=== PATIENT | male | born 1980 | race Caucasian/White ===

== ENCOUNTER 2017-05-02 12:37 | Emergency (ER) | payer OTHER ==
[2015-04-01 19:34] VITALS: BP 117/62
--- NOTE | 2017-05-02 13:14 | ED Physician Documentation ---
General Adult - HISTORIAN Historian: patient - HPI Stated Complaint: baseball to face Chief Complaint: General Adult Further Comments: yes (36 year old male patient presents with facial and nose pain after being hit in the nose and upper lip with a baseball in the batting cage. Denies difficulty breathing through nares.) - ROS CONST: no problems EYES/ENT: none CVS/RESP: none GI/: none MS/SKIN/LYMPH: none NEURO/PSYCH: denies: headache - PAST HX Past History: A-Fib (remote history at age 23) Other History: none Allergies/Adverse Reactions: Allergies Allergy/AdvReac Type Severity Reaction Status Date / Time No Known Allergies Allergy Verified 05/02/17 12:53 Home Medications: Ambulatory Orders Medication Instructions Recorded NK [NK] 04/01/15 - SOCIAL HX Smoking History: denies: non-smoker - FAMILY HX Family History: No - VITAL SIGNS Vital Signs: Vital Signs Temp Pulse Resp BP Pulse Ox 117/62 04/01/15 19:32 - REVIEWED ASSESSMENTS Nursing Assessment Reviewed: Yes Vitals Reviewed: Yes Progress - Progress Progress: Referral to Dr Callejas - ENT Patient refused pain medication in ER. Reviewed discharge instructions with patient, verbalized understanding. Home with disc and report. ED Results Lab/Radiology - Radiology Radiology Impressions: CT of the facial bones Clinical history: Baseball injury Radiation dose DLP 519 Axial images of the facial bones were performed followed by sagittal and coronal reformatted images, study demonstrates the following: There is what appear to be a fracture of the anterio nasal spine mid maxilla. Orbits are normal. No fluid in the sinuses . Zygomatic arch, mandibles are normal. Temporomandibular joints are normal. No orbital emphysema. Impression: Nondisplaced fracture of the anterior nasal spine Otherwise normal CT of the facial bones - Orders Orders: ED Orders Category Date Time Status CT MAXILLOFACIAL W/O DYE Stat Exams 05/02/17 Ordered General Adult Physical Exam - PHYSICAL EXAM GENERAL APPEARANCE: mild distress EENT: eye inspection normal, pharynx normal, no signs of dehydration, FAISAL, no nystagmus, TM's nml, other (nasal edema noted, upper lip edema; no loose teeth; able to breath through bilateral nares. ) RESPIRATORY: no resp distress, chest non-tender, breath sounds normal CVS: reg rate & rhythm, heart sounds normal, equal pulses, no murmur, no gallop , PMI nml, no JVD, no friction rub, 24 ABDOMEN: soft, no organomegaly, normal bowel sounds, no abdominal bruit, no distension SKIN: normal color, warm/dry, NR, INT, PAL, DR EXTREMITIES: non-tender, normal range of motion, no evidence of injury, no edema , J, [employer] NEURO: oriented X3, CN's nml as tested, motor nml, sensation nml, mood/affect nml Discharge Clincal Impression: Nasal bone fracture Qualifiers: Encounter type: initial encounter Fracture type: closed Qualified Code(s): S02.2XXA - Fracture of nasal bones, initial encounter for closed fracture Referrals: Yousif Fish MD [Primary Care Provider] - 2 Days Additional Instructions: Rest ice Elevation of head Follow up with ENT (ear,nose and throat) this week. Take your disc and report to the ENT doctor with you. Home Medications: Ambulatory Orders NK [NK] 04/01/15 Condition: Stable Disposition: 01 HOME, SELF-CARE Decision to Admit: NO Decision Time: 13:14
--- NOTE | 2017-05-02 14:15 | Diagnostic Imaging Report ---
BHAVESH MACDONALD (ANGUS) - ER~ [facility] [address] [facility] [address] [place], [place]. [address] ~ ~ ~ ~ Report Submission Date: May 02, 2017 1:09:45 PM CDT Patient ~ Study Name: GOMEZ ROJO ~ Date: May 02, 2017 12:48:00 PM CDT ~ Modality Type: CT\SR Gender: M ~ Description: CT MAXILLOFACIAL W/O D : 78 ~ Institution: [facility] Physician: BHAVESH MACDONALD) - MATT ~ ~ ~ ~ CT of the facial bones Clinical history: Baseball injury Radiation dose DLP 519 Axial images of the facial bones were performed followed by sagittal and coronal reformatted images, study demonstrates the following: There is what appear to be a fracture of the anterio ~nasal spine mid maxilla. Orbits are normal. No fluid in the sinuses . Zygomatic arch, mandibles are normal. Temporomandibular joints are normal. No orbital emphysema. Impression: Nondisplaced fracture of the anterior nasal spine Otherwise normal CT of the facial bones ~ Electronically signed on May 02, 2017 1:09:45 PM CDT by: Jose Roberto ASCENCIO
== END 2017-05-02 13:27 | disposition home or self-care (01) ==
LOC: ED 12:37
DX: S02.2XXA Fracture of nasal bones, initial encounter for closed fracture (principal); X58.XXXA Exposure to other specified factors, initial encounter; Y93.9 Activity, unspecified; Y99.9 Unspecified external cause status
CPT/HCPCS: 70486; 99283

== ENCOUNTER 2017-09-25 12:00 | Emergency (ER) | payer OTHER ==
[2017-09-25] MEDS ORDERED: MAGNESIUM HYDROXIDE/AL HYDROX 30 ML UDC PO ONE (12:21)
[2017-09-25] MEDS ORDERED: Lidocaine 2%Visc 15ml 20 MG/ML UDC ONE (12:22)
[2017-09-25] MEDS ORDERED: MAG HYDROX/AL HYDROX/SIMETH 30 ML, Lidocaine 2%Visc 15ml 20 MG, PHENobarb/HYOSCY/ATROPI... PO ONE ×3 (12:26)
[2017-09-25] MEDS ORDERED: FAMOTIDINE 20 MG TABLET ONE (12:30)
--- NOTE | 2017-09-25 12:32 | ED Physician Documentation ---
Chest Pain - HISTORIAN Historian: patient, child - HPI Chief Complaint: Chest Pain Additional Information: onset 2 d ago burning in throat then this am urq chest pain progressing t0 mid sternal cp rates 3/10. not had similar before but has recurrent AT FIB on flecanide. son has gerd Timing: gradual onset, still present Duration: constant, waxing, waning (burning in throat as well std 1-2 days ago) Last known Well Date: 09/23/17 Last Known Well Time: 07:23 Context: activity (leisulely) Severity: moderate Quality: pressure, tightness Chest Pain Radiation: no radiation Chest Pain Signs/Symptoms: denies: nausea, vomiting, diaphoresis, cool extremities, dizziness, dyspnea Worsened By: nothing Relieved By: nothing - ROS CONST: no problems MS/LYMPH: none GI/: none. denies: vomiting, nausea, diarrhea EYES/ENT: denies: problems with vision SKIN/ENDO: none NEURO/PSYCH: none - PAST HX [place] risk factors: A-Fib Neuro deficit: none GI disease: none Lung disease: none Surgeries/Procedures: none Allergies/Adverse Reactions: Allergies Allergy/AdvReac Type Severity Reaction Status Date / Time No Known Allergies Allergy Verified 09/25/17 12:35 Home Medications: Ambulatory Orders Medication Instructions Recorded NK [NK] 04/01/15 - SOCIAL HX Smoking History: denies: non-smoker (not daily-just occasional) Alcohol Use: occasionally Drug Use: none - FAMILY HX Family HX: none - VITAL SIGNS Vital Signs: Vital Signs Temp Pulse Resp BP Pulse Ox 117/62 04/01/15 19:32 - REVIEWED ASSESSMENTS Nursing Assessment Reviewed: Yes Vitals Reviewed: Yes ED Results Lab/Radiology - Radiology Radiology Impressions: cxr-no acute disease seen - Orders Orders: ED Orders Category Date Time Status Continuous EKG monitoring Q30M Care 09/25/17 12:25 Ordered Continuous Pulse Oximetry Q30M Care 09/25/17 12:[address] IV Lock 1T Care 09/25/17 12:25 Ordered CHEST 1 VIEW [RAD] Stat Exams 09/25/17 12:25 Ordered CBC/PLATELET/DIFF Routine Lab 09/25/17 12:25 Ordered CMP Routine Lab 09/25/17 12:25 Ordered TROPONIN I (cTnI) Stat Lab 09/25/17 12:25 Ordered Gi Cocktail Med 09/25/17 12:26 Ordered Mag Hydrox/Al Hydrox/Simeth [Mylanta] 30 ml Lidocaine 2%Visc 15ml [Xylocaine] 20 mg PHENobarb/HYOSCY/ATROPINE/SCOP [] 10 ml PO NOW Lidocaine 2%Visc 15ml [Xylocaine] Med 09/25/17 12:22 Discontinued 300 mg .ROUTE .STK-MED ONE Magnesium Hydroxide/Al Hydrox [Maalox] Med 09/25/17 12:21 Discontinued 30 ml PO .STK-MED ONE EKG WITH COMPARISON Stat Ther 09/25/17 12:25 Ordered Chest Pain Physical Exam - EXAM General Appearance: mild distress EENT: eye inspection normal Neck: nml inspection, no carotid bruit Respiratory: no resp. distress, chest non-tender, nml breath sounds, resp.distress CVS: reg. rate & rhythm, no murmur, pulses equal. No: frequent extrasystoles Abdomen: soft, non-tender Skin: warm/dry, normal color. No: cyanosis, diaphoresis, jaundice Extremities: non-tender, normal range of motion Neuro: oriented X3, motor nml, sensation nml, mood/affect nml Discharge Clincal Impression: atypical chest pain, suspect gerd - peptic acid disease, hx atrial fibrillatioon-nonetoday Referrals: Yousif Fish MD [Primary Care Provider] - 2 Days Comments: rec zaANTAC 150 BID PLUS MYLANTA =- SEE GASTROENTEROLOGISTS ALSO ENT FOR 'lump in throat" Condition: Good Disposition: 01 HOME, SELF-CARE Decision to Admit: NO Decision Time: 13:39
[2017-09-25] MEDS ORDERED: FAMOTIDINE 20 MG TABLET PO ONE (12:36)
[2017-09-25 13:04] LABS: BASOPHILS % 0.7 (0.0-1.5); EOSINOPHILS % 1.2 % (0.0-6.8); MEAN CORPUSCULAR VOLUME 97.5 fl (80.0-100.0); MONOCYTES % 7.4 % (0.0-11.0); NEUTROPHILS # 2.8 # k/uL (1.4-7.7)
[2017-09-25 13:19] LABS: eGFR (African) > 60; eGFR (Non-African) > 60
[2017-09-25 14:05] VITALS: BP 112/70
--- NOTE | 2017-09-25 17:34 | Diagnostic Imaging Report ---
CHESTER WILSON [facility] [address] [facility] [address] 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 Physician: CHESTER WILSON Examination: Portable chest History: Chest discomfort Comparison exam: None available. Findings: Single view of the chest demonstrates a normal cardiac and mediastinal silhouette. Lung tee without focal infiltrate. No blunting of the costophrenic margins. Osseous structures are appropriate for age. Impression: No acute pulmonary process. Electronically signed on Sep 25, 2017 12:40:51 PM ROTOFORMER BACKTENDER by: Eren ASCENCIO
== END 2017-09-25 13:41 | disposition home or self-care (01) ==
LOC: ED 12:00
DX: R07.89 Other chest pain (principal)
CPT/HCPCS: 71010; 80053; 84484; 85025; A9270; 99283; S1016

== ENCOUNTER 2017-11-30 13:36 | Outpatient (CLI) | payer OTHER | END 2017-11-30 13:37 | LOC: CARD 13:36 | PROVIDERS: ATTEND Internal Medicine Cardiovascular Disease | DX: I48.91 Unspecified atrial fibrillation (principal) | CPT/HCPCS: 99213 ==

== ENCOUNTER 2017-12-14 15:47 | Emergency (ER) | payer OTHER ==
--- NOTE | 2017-12-14 15:57 | ED Physician Documentation ---
Chest Pain - HISTORIAN Historian: patient - HPI Stated Complaint: left arm pain/chest pain Chief Complaint: Upper Extremity Problem Onset: hours (1) Timing: sudden onset Duration: constant Last known Well Date: 12/14/17 Last Known Well Time: 12:00 Last known Well Code/Unknown Code: Unknown Context: activity Severity: mild Quality: burning, dull Chest Pain Radiation: back Chest Pain Signs/Symptoms: denies: nausea, vomiting, diaphoresis, dizziness, dyspnea, tachypnea, tachycardia, hypotension, palpitations, weakness Worsened By: nothing Relieved By: nothing Further Comments: yes (He states about one hour prior to arrival he had a buring in his arm and he had burning and a numb like feeling go down his left arm/hand and he denies any injury. He has a history of Afib he does see Dr Hardwick for this issue and has med he takes but he was told he didnt need to continue the asprin daily) - ROS CONST: none MS/LYMPH: none GI/: none EYES/ENT: none SKIN/ENDO: none NEURO/PSYCH: none - PAST HX [place] risk factors: no pertinent history, A-Fib DVT/PE Risk Factors: none TAD/AAA risk factors: none Neuro deficit: none GI disease: none Lung disease: none Surgeries/Procedures: none Immunizations: referred to PCP Allergies/Adverse Reactions: Allergies Allergy/AdvReac Type Severity Reaction Status Date / Time No Known Allergies Allergy Verified 12/14/17 16:22 Home Medications: Ambulatory Orders Medication Instructions Recorded Flecainide Acetate [Flecainide 50 mg PO BID 12/14/17 Acetate] - SOCIAL HX Smoking History: non-smoker, greater than 1 pack/day Drug Use: none - FAMILY HX Family HX: none - VITAL SIGNS Vital Signs: Vital Signs Temp Pulse Resp BP Pulse Ox 112/70 09/25/17 13:41 - REVIEWED ASSESSMENTS Nursing Assessment Reviewed: Yes Vitals Reviewed: Yes Progress - Progress Progress: 1628: pain in left arm is a tingling feeling bicept down about a "4" on 11/17. DG 1700: states pain is better. is agreeable to discharge. States his neck is what hurts the worst is his neck after he was moving boxes at work. DG ED Results Lab/Radiology - Radiology Radiology Impressions: Examination: Plain film chest History: LT SIDE ARM PAIN, CHEST PRESSURE, HX ATRIAL FIB (Hx) / CHEST PAIN ( DICOM Hx) / CHEST PAIN (Pt comments) Comparison exam: 25 September 2017 Findings: Single view of the chest demonstrates a normal cardiac and mediastinal silhouette. Lung tee without focal infiltrate. No blunting of the costophrenic margins. Osseous structures are appropriate for age. Impression: No acute appearing pulmonary process. Electronically signed on Dec 14, 2017 4:22:26 PM CO FOUNDER AND CTO by: Eren Hunt Chest Pain Physical Exam - EXAM General Appearance: no acute distress, alert EENT: eye inspection normal Neck: nml inspection Respiratory: no resp. distress, chest non-tender, nml breath sounds, resp.distress CVS: reg. rate & rhythm, no murmur Abdomen: soft, normal bowel sounds, non-tender Skin: warm/dry, normal color Extremities: non-tender, normal range of motion, no evidence of injury, no edema Neuro: oriented X3, CN's nml as tested, motor nml, sensation nml Discharge Clincal Impression: Arm pain, left, Neck pain Referrals: Yousif Fish MD [REFERRING] - 2 Days Comments: 1. Cyclobenzaprine 10 mg take 1 by mouth BID as needed for muscle pain 2. Medrol Dose pack as directed 4 mg 3. Follow up with Dr Hardwick 4. Return to ER for Shortness of breath, chest pain, increased or concerning symptoms 5. Stretch before and after working Condition: Stable Disposition: 01 HOME, SELF-CARE Decision to Admit: NO Date of Decison to Admit: 12/14/17 Decision Time: 17:21
[2017-12-14] MEDS: ASPIRIN 81 MG CHEW TAB PO ONE (16:19)
[2017-12-14 16:24] LABS: BASOPHILS % 0.6 (0.0-1.5); EOSINOPHILS % 0.7 % (0.0-6.8); MEAN CORPUSCULAR HEMOGLOBIN 32.2 pg (28.0-34.0); MEAN CORPUSCULAR VOLUME 96.1 fl (80.0-100.0); MONOCYTES % 3.9 % (0.0-11.0); NEUTROPHILS # 4.5 # k/uL (1.4-7.7)
[2017-12-14 16:40] LABS: eGFR (African) > 60; eGFR (Non-African) > 60
[2017-12-14] MEDS: KETOROLAC TROMETHAMINE 30 MG/1ML VIAL IVP ONE (17:00)
[2017-12-14 17:59] VITALS: BP 112/60
--- NOTE | 2017-12-14 22:31 | Diagnostic Imaging Report ---
LJ REYES [facility] [address] [facility] [address] [place], [place]. [address] Report Submission Date: Dec 14, 2017 4:22:26 PM RADAR REPAIRER Patient Study Name: GOMEZ ROJO Date: Dec 14, 2017 4:11:18 PM RADAR REPAIRER Modality Type: CR Gender: M Description: CHEST : 78 Institution: [facility] Physician: LJ REYES Examination: Plain film chest History: LT SIDE ARM PAIN, CHEST PRESSURE, HX ATRIAL FIB (Hx) / CHEST PAIN ( DICOM Hx) / CHEST PAIN (Pt comments) Comparison exam: 25 September 2017 Findings: Single view of the chest demonstrates a normal cardiac and mediastinal silhouette. Lung tee without focal infiltrate. No blunting of the costophrenic margins. Osseous structures are appropriate for age. Impression: No acute appearing pulmonary process. Electronically signed on Dec 14, 2017 4:22:26 PM RADAR REPAIRER by: Eren ASCENCIO
== END 2017-12-14 17:22 | disposition home or self-care (01) ==
LOC: ED 15:47
DX: R07.1 Chest pain on breathing (principal); M79.602 Pain in left arm
CPT/HCPCS: 71010; 80053; 82550; 84484; 85025; 93005; J1885; 71045; 96374; 99283; S1016

== ENCOUNTER 2019-11-04 06:35 | Emergency (ER) | payer OTHER ==
[2019-11-04] MEDS ORDERED: 0.9 % SODIUM CHLORIDE 1,000 ML IV ONE (06:42)
--- NOTE | 2019-11-04 06:46 | ED Physician Documentation ---
General Adult - HISTORIAN Historian: patient - HPI Stated Complaint: not feeling well, dizzy Chief Complaint: General Adult Additional Information: Patient presents to ED with dizziness and not feeling well after he woke up this morning. Patient states when he woke up he felt shaky and dizzy (like he was going to pass out). He reports a history of atrial fibrillation and is currently on fleccanide and Cardizem. He has bee taking this medication faithfully. EKG upon presentation shows NSR with HR 74 bpm. Patient denies shortness of breath, fever, chills, chest pain, nausea, vomiting, diarrhea, abdominal pain, syncope, visual changes. Onset: minutes (30) Timing: still present Severity: mild - ROS CONST: no problems, fever EYES/ENT: none CVS/RESP: none GI/: none MS/SKIN/LYMPH: none NEURO/PSYCH: dizziness - PAST HX Past History: other (Atrial Fibrillation) Other History: none Surgeries/Procedures: none - SOCIAL HX Smoking History: chew Alcohol Use: none Drug Use: none - FAMILY HX Family History: No - VITAL SIGNS Vital Signs: Vital Signs Temp Pulse Resp BP Pulse Ox 112/60 12/14/17 17:22 - REVIEWED ASSESSMENTS Nursing Assessment Reviewed: Yes Vitals Reviewed: Yes <Amanda Munoz - Last Filed: 11/04/19 06:56> - VITAL SIGNS Vital Signs: Vital Signs Temp Pulse Resp BP Pulse Ox 97.9 F 73 22 125/74 99 11/04/19 06:45 11/04/19 06:45 11/04/19 06:45 11/04/19 06:45 11/04/19 06:45 <Luis Miguel Talavera - Last Filed: 11/04/19 08:44> - PAST HX Allergies/Adverse Reactions: Allergies Allergy/AdvReac Type Severity Reaction Status Date / Time No Known Allergies Allergy Verified 11/04/19 06:49 Home Medications: Ambulatory Orders Medication Instructions Recorded Flecainide Acetate 50 mg PO BID 12/14/17 Progress - Progress Progress: [address] Talavera, he will take over care. - EKG/XRAY/CT Comments: 0630 [address]R [address] elevation <Amanda Munoz - Last Filed: 11/04/19 06:56> - Progress Progress: NS 1 L IVF Ativan 1 mg IV Debrox for b/l cerumen disimpaction. d/c instructions: Anxiety Rx Ativan 1 mg. Take one every 8 hours as needed for anxiety. Follow up with primary provider in 1 week if anxiety continues. UTI Rx Bactrim DS. Take one by mouth every 12 hours for 5 days. Vertigo Wear Scapolamine patch as directed Cerumen impaction. Use hydrogenperoxide/water mixture in ears periodically to flush out wax. - EKG/XRAY/CT XRAY: chest (neg) <Luis Miguel Talavera - Last Filed: 11/04/19 08:44> ED Results Lab/Radiology - Orders Orders: ED Orders Category Date Time Status Place IV Lock 1T Care 11/04/19 06:40 Active CHEST 1VIEW [RAD] Stat Exams 11/04/19 Ordered CBC/PLATELET/DIFF Routine Lab 11/04/19 Ordered CMP Routine Lab 11/04/19 Ordered TROPONIN I Stat Lab 11/04/19 Ordered UA W/MICRO IF INDICATED Routine Lab 11/04/19 06:42 Ordered NORMAL SALINE @ 1000 MLS/HR ( 1000ml BOLUS) Med 11/04/19 06:42 Ordered 0.9 % Sodium Chloride [Normal Saline] 1,000 ml IV NOW EKG WITH COMPARISON Stat Ther 11/04/19 Ordered <Amanda Munoz - Last Filed: 11/04/19 06:56> - Lab Results Lab Results: Lab Results 11/04/19 11/04/19 11/04/19 06:41 06:41 06:41 WBC RBC Hgb Hct MCV MCH MCHC RDW Plt Count Neut % (Auto) Lymph % (Auto) [place] % (Auto) Eos % (Auto) Baso % (Auto) Neut # (Auto) Lymph # (Auto) [place] # (Auto) Eos # (Auto) Baso # (Auto) Sodium 141 mmol/L mmol/L (137-145) Potassium 3.9 mmol/L mmol/L (3.5-5.1) Chloride 104 mmol/L mmol/L (98-107) Carbon Dioxide 28 mmol/L mmol/L (22-30) Anion Gap 12.9 BUN 17 mg/dL mg/dL (9-20) Creatinine 0.77 mg/dL mg/dL (0.66-1.25) Estimated Creat Clear 134 Est GFR ( Amer) > 60 (60 - ) Est GFR (Non-Af Amer) > 60 (60 - ) Glucose 102 mg/dL mg/dL (74-106) Calcium 9.3 mg/dL mg/dL (8.4-10.2) Total Bilirubin 0.6 mg/dL mg/dL (0.2-1.3) AST 50 U/L H U/L (15-46) ALT 40 U/L U/L (4-50) Alkaline Phosphatase 74 U/L U/L (38-126) Troponin I < 0.012 ng/mL L ng/mL (0.012-0.034) Total Protein 7.6 g/dL g/dL (6.3-8.2) Albumin 4.8 g/dL g/dL (3.5-5.0) TSH 1.450 mIU/l mIU/l (0.465-4.685) 11/04/19 06:41 WBC 4.20 K/ul K/ul (4.00-12.00) RBC 4.94 M/ul M/ul (3.90-5.20) Hgb 16.1 g/dL g/dL (12.0-18.0) Hct 47.3 % % (37.0-53.0) MCV 96.0 fl fl (80.0-100.0) MCH 32.5 pg pg (28.0-34.0) MCHC 34.0 g/dL g/dL (30.0-36.0) RDW 10.9 % L % (11.3-14.3) Plt Count 201 K/mm3 K/mm3 (130-400) Neut % (Auto) 47.8 % % (39.0-79.0) Lymph % (Auto) 41.6 % % (16.0-50.0) [place] % (Auto) 7.4 % % (0.0-11.0) Eos % (Auto) 2.4 % % (0.0-6.8) Baso % (Auto) 0.8 % % (0.0-1.5) Neut # (Auto) 2.0 # k/uL # k/uL (1.4-7.7) Lymph # (Auto) 1.8 # k/uL # k/uL (0.6-4.0) [place] # (Auto) 0.3 # k/uL # k/uL (0.0-0.9) Eos # (Auto) 0.1 # k/uL # k/uL (0.0-0.6) Baso # (Auto) 0.0 # k/uL # k/uL (0.0-0.5) Sodium Potassium Chloride Carbon Dioxide Anion Gap BUN Creatinine Estimated Creat Clear Est GFR ( Amer) Est GFR (Non-Af Amer) Glucose Calcium Total Bilirubin AST ALT Alkaline Phosphatase Troponin I Total Protein Albumin TSH - Orders Orders: ED Orders Category Date Time Status Place IV Lock 1T Care 11/04/19 06:40 Active CHEST 1VIEW [RAD] Stat Exams 11/04/19 Taken CBC/PLATELET/DIFF Routine Lab 11/04/19 06:41 Completed CMP Routine Lab 11/04/19 06:41 Completed TROPONIN I Stat Lab 11/04/19 06:41 Completed TSH Stat Lab 11/04/19 06:41 Completed UA W/MICRO IF INDICATED Routine Lab 11/04/19 06:42 Ordered 0.9 % Sodium Chloride [Normal Saline] 1,000 ml Med 11/04/19 06:42 Discontinued IV NOW Carbamide Peroxide 6.5% Otic [Debrox] Med 11/04/19 07:09 Discontinued 5 drop AU NOW ONE LORazepam [Ativan] Med 11/04/19 07:09 Discontinued 1 mg IV NOW ONE EKG WITH COMPARISON Stat Ther 11/04/19 Ordered <Luis Miguel Talavera - Last Filed: 11/04/19 08:44> General Adult Physical Exam - PHYSICAL EXAM GENERAL APPEARANCE: no distress EENT: FAISAL, other (Left TM normal, Right TM occluded with ear wax.) NECK: normal inspection, supple RESPIRATORY: no resp distress, chest non-tender, breath sounds normal CVS: reg rate & rhythm, heart sounds normal ABDOMEN: soft, increased BS BACK: normal inspection SKIN: warm/dry, normal color EXTREMITIES: non-tender NEURO: oriented X3, mood/affect nml <Amanda Munoz - Last Filed: 11/04/19 06:56> - PHYSICAL EXAM GENERAL APPEARANCE: anxious <Luis Miguel Talavera - Last Filed: 11/04/19 08:44> Discharge <Amanda Munoz - Last Filed: 11/04/19 06:56> Decision to Admit: NO Decision Time: 08:34 <Luis Miguel Talavera - Last Filed: 11/04/19 08:44> Clincal Impression: vertigo, anxiety, UTI, Impacted cerumen of both ears Referrals: Primary Doctor,No [Primary Care Provider] - Condition: Stable Disposition: 01 HOME, SELF-CARE
[2019-11-04 06:57] LABS: BASOPHILS % 0.8 % (0.0-1.5)
[2019-11-04 07:04] LABS: eGFR (Non-African) > 60
[2019-11-04] MEDS ORDERED: CARBAMIDE PEROXIDE 6.5% OTIC SUSP 15 ML BOTTLE AU ONE (07:09)
[2019-11-04] MEDS ORDERED: LORazepam 2 MG/ML VIAL IV ONE (07:09)
[2019-11-04] MEDS ORDERED: SCOPOLAMINE HYDROBROMIDE 1.5MG/72HR PATCH TD ONE (08:17)
[2019-11-04 08:41] LABS: APPEARANCE,URINE CLEAR (CLEAR); COLOR,URINE YELLOW (YELLOW); OCCULT BLOOD,URINE NEGATIVE (NEGATIVE); PH URINE 7.5 (5.0 - 8.0); UROBILINOGEN URINE 0.2 Eu (0.2-1.0)
[2019-11-04] MEDS ORDERED: SCOPOLAMINE HYDROBROMIDE 1.5MG/72HR PATCH TD SCH (09:00)
[2019-11-04 09:05] VITALS: BP 108/58
--- NOTE | 2019-11-06 09:41 | Diagnostic Imaging Report ---
PATIENT MR#: [id number] PATIENT PATIENT NAME: GOLDIE ROJO DATE OF : 1980 REFERRING PHYSICIAN: Amanda Fan EXAM DATE: 11/04/2019 ACCESSION NUMBER: [id number] EXAM DESCRIPTION: CHEST 1VIEW Portable chest History: Dizziness Portable chest dated November 04, 2019 demonstrates a normal cardiomediastinal silhouette. Pulmonary vascularity is normal. Lungs are clear. Impression: No active disease. Read by: Dr. Shruthi Seth Transcribed by: Transcribed Date: Electronically signed by: Dr. Shruthi Seth Date signed: 11/06/2019 9:40:49 AM
== END 2019-11-04 09:05 | disposition home or self-care (01) ==
LOC: ED 06:35
DX: F41.9 Anxiety disorder, unspecified (principal); N39.0 Urinary tract infection, site not specified; H61.23 Impacted cerumen, bilateral; R42 Dizziness and giddiness
CPT/HCPCS: 80053; 81002; 84443; 84484; 85025; 87086; 93005; 96361; 96374; 99284; J2060; A9270-GY; J7030; S1016